=== PATIENT | female | born 1970 | race Caucasian/White ===

== ENCOUNTER 2020-12-10 14:26 | Emergency (ER) | payer MEDICARE, MEDICAID ==
[~2020-12-10] VITALS: Ht 167.6 cm; Wt 81.0 kg
[~2020-12-10 14:26] MED LIST: AMLO10TA80 PO; CLON-457 PO
[2020-12-10] MEDS ORDERED: TRANEXAMIC ACID 1,000 MG/10 ML TP ONE (14:45)
[2020-12-10] MEDS ORDERED: DESMOPRESSIN ACETATE 0.1MG TABLET PO ONE (15:30)
[2020-12-10] MEDS ORDERED: HYDRALAZINE 20MG/ML VIAL IV ONE (15:30)
[2020-12-10 16:00] LABS: BASOPHILS % 3.1 % (0.0-2.0); CHLORIDE 103 mEq/L (98-107); EOSINOPHILS % 5.3 % (0.0-5.0); HEMATOCRIT. 31.7 % (36.0-48.0); HEMOGLOBIN. 11.2 g/dL (12.0-16.0); LYMPHOCYTES % 11.9 % (20.0-50.0); MEAN CORPUSCULAR HEMOGLOBIN 33.3 pg (28.0-32.0); MEAN CORPUSCULAR VOLUME 94.2 fL (81.0-99.0); MEAN PLATELET VOLUME 8.6 fl (7.4-10.4); NEUTROPHILS % 70.7 % (40.0-76.0); PLATELET 133 x1000/uL (130-400); RED BLOOD CELL COUNT 3.36 mill/uL (4.2-5.4); RED CELL DISTRIBUTION WIDTH 15.3 % (11.6-14.6)
[2020-12-10] MEDS ORDERED: SODIUM CHLORIDE 0.9% IV ONE (16:00)
[2020-12-10] MEDS ORDERED: DESMOPRESSIN ACETATE IV ONE (16:00)
[2020-12-10 16:09] LABS: INR 1.2; PROTHROMBIN TIME 13.1 sec (9.6-11.0)
[2020-12-10] MEDS ORDERED: DESMOPRESSIN ACETATE IVPB 20 MCG in SODIUM CHLORIDE 0.9% 50 ML IV NR (17:00)
[2020-12-10] MEDS ORDERED: METRONIDAZOLE 500MG TABLET PO ONE (19:30)
[2020-12-10 23:30] VITALS: BP 157/87
== END 2020-12-10 23:50 | disposition home or self-care (01) ==
LOC: ER 14:26
DX: T82.41XA Breakdown (mechanical) of vascular dialysis catheter, initial encounter (principal); I48.91 Unspecified atrial fibrillation; Y84.1 Kidney dialysis as the cause of abnormal reaction of the patient, or of later complication, without mention of misadventure at the time of the procedure; Y92.9 Unspecified place or not applicable; I12.0 Hypertensive chronic kidney disease with stage 5 chronic kidney disease or end stage renal disease; N18.6 End stage renal disease; Z99.2 Dependence on renal dialysis; Z20.822 Contact with and (suspected) exposure to COVID-19
CPT/HCPCS: 36415; 80053; 85025; 85610; 86850; 86900; 86901; 87426; 96365; 96375; 99285; J0360; J2597